=== PATIENT | female | born 1930 | race Caucasian/White ===

== ENCOUNTER → 2017-09-26 | Outpatient (CLI) | payer MEDICARE, OTHER ==
[~2017-09-26] MED LIST: ACET500 PO; BISA10S PR; BISA5EC PO; BISM87SU PO; CALGLU500 PO; CEPH500 PO; CVS DISPOSABLE399 ML PR; DOCU100 PO; ERGO400 PO; Exelon1 EACH TD; FISH1000 PO; FLAX PO; LATA.005SO; MULVITA PO; Milk Of Ma400 MG/5 M PO; OLAN2.5 PO; RIVA1.5 PO; SERT100 PO; SERT25 PO; TRAM50 PO; XARELTO10 MG PO; Zofran Odt4 MG SL
[2017-09-26 12:41] LABS: Source, Urine Clean Catch
[2017-09-26 12:54] LABS: Appearance, Urine Turbid (Clear); Bilirubin, Urine Neg (Neg); Blood, Urine 4+ (Neg); Color, Urine Amber (P-Yellow); Glucose Qualitative, Urine Neg (Neg); Ketones, Urine Neg (Neg); Leukocyte Esterase, Urine 1+ (Neg); Nitrite, Urine Neg (Neg); Protein, Urine 2+ (Neg); Specific Gravity, Urine 1.015 (1.003-1.022); Urobilinogen, Urine NORM (Normal)
[2017-09-26 13:30] LABS: Triple Phosphate Crystals Mod /hpf
[2017-09-26 13:34] LABS: Amorphous Heavy ([, 0-Heavy]); Mucus Heavy ([, 0-Heavy])
== END ==
LOC: LAB SHORT 12:38 → LAB 12:38
PROVIDERS: Student in an Organized Health Care Education/Training Program
DX: N39.0 Urinary tract infection, site not specified (principal)
CPT/HCPCS: 81001; 87077; 87086; 87186

== ENCOUNTER → 2017-10-22 | Outpatient (CLI) | payer MEDICARE, OTHER ==
[2017-10-22 12:17] LABS: Source, Urine Clean Catch
[2017-10-22 12:26] LABS: Bilirubin, Urine Neg (Neg); Blood, Urine 1+ (Neg); Glucose Qualitative, Urine Neg (Neg); Ketones, Urine Neg (Neg); Leukocyte Esterase, Urine 2+ (Neg); Nitrite, Urine Neg (Neg); Protein, Urine Neg (Neg); Specific Gravity, Urine 1.025 (1.003-1.022); Urobilinogen, Urine NORM (Normal)
[2017-10-22 12:33] LABS: Appearance, Urine Clear (Clear); Color, Urine Yellow (P-Yellow)
[2017-10-22 12:37] LABS: Red Blood Cells, Urine 0-2 /hpf (0-2); Squamous Epithelial Cells Few /hpf (Few)
[2017-10-22 12:38] LABS: Amorphous Light ([, 0-Heavy]); Bacteria Few /hpf; Mucus Light ([, 0-Heavy])
== END ==
LOC: LAB 11:30 → LAB SHORT 11:30
PROVIDERS: Student in an Organized Health Care Education/Training Program
DX: N39.0 Urinary tract infection, site not specified (principal)
CPT/HCPCS: 81001; 87086

== ENCOUNTER 2018-12-16 14:33 | Inpatient (IN) | payer MEDICARE, OTHER ==
[~2018-12-16] VITALS: Ht 170.2 cm; Wt 74.8 kg
[~2018-12-16 14:33] MED LIST changes: -ACET500 PO; +Aspirin EC81 MG PO; +Cephalexin250 MG/5 M PO; +Feverall650 MG PR; +Keflex500 MG PO; +Omeprazole20 M1 PO; +Senna S Tablet1 EACH PO
[2018-12-16] MEDS ORDERED: Penlac6.6 ML TOP (14:43)
[2018-12-16] MEDS ORDERED: D-MANNOSE PO (14:44)
[2018-12-16 15:06] LABS: BASOPHILS ABSOLUTE AUTO 0.07 K/mm3 (0.00-0.23); BASOPHILS PERCENT AUTO 1 % (0-2); EOSINOPHILS ABSOLUTE AUTO 0.05 K/mm3 (0.00-0.68); EOSINOPHILS PERCENT AUTO 0 % (0-6); Hemoglobin 13.6 g/dL (11.5-16.0); IMMATURE GRAN ABSOLUTE AUTO 0.07 K/mm3 (0.00-0.10); IMMATURE GRAN PERCENT AUTO 1 % (0-1); LYMPHOCYTES ABSOLUTE AUTO 0.83 K/mm3 (0.84-5.20); LYMPHOCYTES PERCENT AUTO 7 % (21-46); MONOCYTES ABSOLUTE AUTO 0.71 K/mm3 (0.16-1.47); MONOCYTES PERCENT AUTO 6 % (4-13); Mean Corpuscular HGB 28.2 pg (26.0-34.0); Mean Corpuscular HGB Conc 32.4 g/dL (31.5-36.5); Mean Corpuscular Volume 87 fL (80-100); Mean Platelet Volume 9.8 fL (9.1-12.4); NEUTROPHILS ABSOLUTE AUTO 9.85 K/mm3 (1.96-9.15); NEUTROPHILS PERCENT AUTO 85 % (41-73); Platelet Count 264 K/mm3 (150-400); RDW Coefficient Variation 13.8 % (11.7-14.2); RDW Standard Deviation 44.5 fL (35.1-46.3); Red Blood Cell Count 4.82 M/mm3 (3.80-5.20); White Blood Cell Count 11.58 K/mm3 (4.00-11.30)
[2018-12-16 15:38] LABS: Alanine Aminotransfer (ALT/SGP 18 U/L (12-78); Albumin, Blood 3.3 g/dL (3.4-5.0); Albumin/Globulin Ratio 0.8 (0.8-1.8); Alk Phos 88 U/L (50-136); Anion Gap 9 mmol/L (6-16); Aspartate Aminotrans (AST/SGOT 17 U/L (12-37); Bilirubin, Total 0.6 mg/dL (0.1-1.0); Blood Urea Nitrogen 31 mg/dL (8-24); Bun/Creatinine Ratio 45.9 (12.0-20.0); CO2, Blood 22 mmol/L (21-32); Chloride, Blood 115 mmol/L (98-108); Creatinine, Blood 0.68 mg/dL (0.40-1.00); Globulin, Blood 3.9 g/dL (2.2-4.0); Glomerular Filtration Rate >60 (60-); Glucose, Blood 136 mg/dL (70-99); Potassium, Blood 3.6 mmol/L (3.5-5.5); Sodium, Blood 146 mmol/L (136-145); Total Protein, Blood 7.2 g/dL (6.4-8.2)
[2018-12-16 15:41] LABS: Thyroid Stimulating Hormone 0.753 uIU/mL (0.360-4.800)
[2018-12-16 15:46] LABS: Bicarbonate Venous 21.7 mmol/L (24.0-30.0); PCO2 Venous 37.8 mmHg (38-42); PO2 Venous 42.8 mmHg (38-42); pH Blood Venous 7.38 (7.34-7.37)
--- NOTE | 2018-12-16 17:03 | NUR ---
Initial Visit: ED Palliative Care Consult for Goals of Care. Spoke with Dr Carpio and discussed case. Dr Carpio reports Pt has advanced dementia and family would like more information about hospice. Goals are for Pt to receive minimal interventions such as IV antibiotics. Pt is resting in gurney with her eyes closed for the majority of visit. Her eyes were opened temporarily at beginning of visit. She does not respond verbally and is somnolent. Pt's daughter and POKarthikeyan Montalvo is present during visit. Katia reports Pt lives at [facility] and has been chair bound for 2 years since fracturing her hip. Katia reports at baseline Pt sits in a wheelchair and listens to mucsic and taps her feet. Pt had a good appetite up until Saturday where her intake significantly decreased on that day. Pt has not had any intake yesterday or today. Pt does not swallow her food or fluid and allows it to sit in her mouth. Pt is incontinent of bowel and bladder. Katia reports Pt's completed POLST is at [facility] and reads DNR and comfort measures only. Discussed hospice as an option. Educated on hospic philosophy with V/U made by Katia. Katia reports she will consider hospice if Pt does not meet criteria for IV antibiotics or hospital admission. Left hospice brochures for different agencies to choose from. Katia expresses appreciation of visit and information provided. No other concerns reported at this time. Dr Carpio will have Pt admitted to hospital. Palliative Care will obtain copy of POLST from [facility] and will remain available.
[2018-12-16] MEDS ORDERED: FLAX PO (18:08)
[2018-12-16] MEDS ORDERED: RIVASTIGMINE1 EACH TOP (18:15)
--- NOTE | 2018-12-16 19:45 | NUR ---
REPORT RECIEVED FROM DESMOND WILSON RN, AND AWAITING PT T/F TO ROOM 349.
--- NOTE | 2018-12-16 21:00 | NUR ---
REPORT RECIEVED AND PT T/F VIA BED TO ROOM 349 AT 1945 W/FAMILY AT BEDSIDE. PT OPENS EYES OCCASIONALLY SPONTANEOUSLY TO SOUND OR DURING CARE BUT QUICKLY FALLS TO SLEEP. SHE IS NONVERBAL, SOMNOLENT AND DOESN'T SEEM TO MAKE EYE CONTACT. PT HAS BEEN UNABLE TO SWALLOW MEDS, EAT OR DRINK FOR DAYS AND HAS BEEN DETERIORATING FOLLOWING HIP FX 2 YEARS AGO BUT MORE SIGNIFICANTLY THE PAST FEW DAYS. SHE CURRENTLY SEEMS TO BE HAVING SOME DIFFICULTY W/ORAL SECRETIONS BUT IS MAINTAINING HER AIRWAYS AND HAS A WEAK MAT PACKER MOIST COUGH. PT IS UPRIGHT FOR ASP.RISK AND I WILL ASSESS NEED FOR SUCTION AT BEDSIDE. SHE IS CURRENTLY NONAMBULATORY ON BEDREST AND STAFF WILL MAINTAIN TURN SCHEDULE. PT IS ON 2L O2 VIA NC W/RESPS E/U. PT DOES NOT WEAR HOME O2. ATTENDS CHANGED UPON T/F FOR INCONTINENCE. URINE WAS TRA/FOUL ODOR. SHE DOESN'T APPEAR TO BE HAVING ISSUES W/VOIDING/RETENTION BUT WILL BLADDER SCAN AFTER NEXT VOID PER ORDER. NO SBD BUT PT HAS SLIGHTLY PINK BOTTOM FROM INCONTINENCE, CREAM APPLIED. SHE IS HYPERTENSIVE W/SBP 160'S BUT HYDRALAZINE PRN NOT REQUIRED PER PARAMETERS. ALL OTHER VSS. FAMILY ANSWERED ADMIT DETAILS AND IS AT BEDSIDE. IVF INFUSING AND LOVENOX TO BE GIVEN. NO ACUTE CHANGES AT THIS TIME.
[2018-12-16] MEDS ORDERED: SUPPLEMENTS PO (21:18)
[2018-12-16] MEDS ORDERED: SODIUM PHOSPHATE PR (21:22)
[2018-12-16] MEDS ORDERED: HYDROGEN PEROXIDE TOP (21:23)
[2018-12-16] MEDS ORDERED: ANTIBIOTIC28.4 GM TOP (21:24)
--- NOTE | 2018-12-17 03:07 | NUR ---
T/F AND SUMMARY: PT T/F VIA BED TO ROOM 349 AT 1945 W/FAMILY AT BEDSIDE. PT OCCASIONALLY OPENS EYES SPONTANEOUSLY TO SOUND OR DURING CARE BUT QUICKLY FALLS BACK TO SLEEP. SHE IS NONVERBAL, SOMNOLENT AND DOESN'T SEEM TO MAKE EYE CONTACT. PT HAS BEEN UNABLE TO SWALLOW MEDS, EAT OR DRINK FOR DAYS AND HAS BEEN DETERIORATING FOLLOWING HIP FX 2 YEARS AGO BUT HAS MORE SIGNIFICANTLY DECLINED THE PAST FEW DAYS. 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 IV ABX RECIEVED IN ER. SHE CURRENTLY SEEMS TO BE HAVING SOME DIFFICULTY W/ORAL SECRETIONS BUT IS MAINTAINING HER AIRWAY AND HAS A WEAK DIRECTOR OF PRIMARY MOIST COUGH. MOUTH CARE ATTENDED TO. SHE REMAINS UPRIGHT FOR ASP.RISK AND SUCTION HASN'T BEEN REQUIRED AT BEDSIDE. SHE IS CURRENTLY NONAMBULATORY ON BEDREST AND STAFF HAS MAINTAINED TURN SCHEDULE. PT IS ON 2L O2 VIA NC W/RESPS E/U. PT DOESN'T WEAR HOME O2. ATTENDS HAVE BEEN CHANGED PRN FOR INCONTINENCE. URINE IS TRA W/FOUL ODOR. SHE DOESN'T APPEAR TO BE HAVING ISSUES W/VOIDING OR RETENTION BUT I WILL BLADDER SCAN FOR PVR PER ORDERS. NO SBD IS NOTED BUT PT HAS SLIGHTLY PINK BOTTOM FROM INCONTINENCE, CREAM APPLIED. SHE IS HYPERTENSIVE W/SBP 140'S-160'S BUT HYDRALAZINE PRN WAS NOT REQUIRED PER PARAMETERS, ALL OTHER VSS. FAMILY ANSWERED ADMIT DETAILS UPON T/F TO FLOOR AND WENT HOME FOR EVENING. PALLIATIVE CX OCCURED IN ER AND POLST IS ON CHART. NS WAS COMPLETED AND D5 1/2NS W/20 KCL IS NOW INFUSING. PT IS GUARDED W/ADDUCTED EXT'S AT BASELINE D/T BEING W/C AND NOW BEDBOUND. SHE HASN'T APPEARED TO HAVE ANY S/S PAIN OR DISTRESS. NO ACUTE CHANGES. WCTM AND REPORT TO DAY RN.
[2018-12-17 05:13] LABS: BASOPHILS ABSOLUTE AUTO 0.04 K/mm3 (0.00-0.23); BASOPHILS PERCENT AUTO 1 % (0-2); EOSINOPHILS ABSOLUTE AUTO 0.18 K/mm3 (0.00-0.68); EOSINOPHILS PERCENT AUTO 2 % (0-6); Hematocrit 38.1 % (33.0-51.0); IMMATURE GRAN ABSOLUTE AUTO 0.02 K/mm3 (0.00-0.10); IMMATURE GRAN PERCENT AUTO 0 % (0-1); LYMPHOCYTES ABSOLUTE AUTO 1.48 K/mm3 (0.84-5.20); LYMPHOCYTES PERCENT AUTO 18 % (21-46); MONOCYTES ABSOLUTE AUTO 0.74 K/mm3 (0.16-1.47); MONOCYTES PERCENT AUTO 9 % (4-13); Mean Corpuscular HGB Conc 31.5 g/dL (31.5-36.5); Mean Corpuscular Volume 89 fL (80-100); Mean Platelet Volume 10.1 fL (9.1-12.4); NEUTROPHILS ABSOLUTE AUTO 5.86 K/mm3 (1.96-9.15); NEUTROPHILS PERCENT AUTO 70 % (41-73); Platelet Count 220 K/mm3 (150-400); RDW Coefficient Variation 13.9 % (11.7-14.2); RDW Standard Deviation 44.9 fL (35.1-46.3); Red Blood Cell Count 4.29 M/mm3 (3.80-5.20); White Blood Cell Count 8.32 K/mm3 (4.00-11.30)
[2018-12-17 05:30] LABS: Alanine Aminotransfer (ALT/SGP 15 U/L (12-78); Albumin, Blood 2.9 g/dL (3.4-5.0); Albumin/Globulin Ratio 0.9 (0.8-1.8); Alk Phos 72 U/L (50-136); Anion Gap 7 mmol/L (6-16); Aspartate Aminotrans (AST/SGOT 16 U/L (12-37); Bilirubin, Total 0.5 mg/dL (0.1-1.0); Blood Urea Nitrogen 28 mg/dL (8-24); Bun/Creatinine Ratio 42.7 (12.0-20.0); CO2, Blood 23 mmol/L (21-32); Chloride, Blood 119 mmol/L (98-108); Creatinine, Blood 0.66 mg/dL (0.40-1.00); Globulin, Blood 3.1 g/dL (2.2-4.0); Glomerular Filtration Rate >60 (60-); Glucose, Blood 133 mg/dL (70-99); Potassium, Blood 3.2 mmol/L (3.5-5.5); Sodium, Blood 149 mmol/L (136-145)
--- NOTE | 2018-12-17 10:49 | NUR ---
D5W-1/4NS KCL 20 MEQ COMPATIBLE WITH MAG SULFATE PER PHARMACIST.
--- NOTE | 2018-12-17 11:01 | NUR ---
PT DAUGHTER VOICES CONCERNS ABOUT AN INFECTED TOOTH ABOUT "SOURCE OF INFECTION. DR MARTINEZ ASSESSED TOOTH AND WILL ORDER NEW ANTIBIOTICS. ON A SEPARATE OCCASION, DAUGHTER VOICES CONCERNS THAT THE PT IS NOT EATING, AND WAS WONDERING ABOUT TPN OR CLINIMIX UNTIL PT IS MORE ALERT TO EAT. PALLIATIVE CARE RN AT BEDSIDE DURING THIS TIME. STATES HE WILL DISCUSS WITH DR MARTINEZ DAUGHTERS NUTRITIONAL CONCERNS.
--- NOTE | 2018-12-17 11:34 | NUR ---
Pt visit this AM. Pt is resting in bed initialy with her eyes closed and responding only by opening her eyes with verbal stimuli. Pt appears comfortable with no S/S of distress. Pt's daughter Katia is present during visit. Discussed POLST in chart. Current POLST reads DNR, Limited Treatment, and Limited Trial of Artificial Nutrition by Tube. Ktaia confirms wishes with the exception of Tube Feeding. Discussed competing a new POLST. Katia would like to delay completing a new POLST until a more clear goal of care has been established. Katia inquires about IV nutrition since Pt has not eaten since Saturday and states "I would like to give my mom every fighting chance". Pt is more wakeful at this time and is smiling but still does not respond verbally. Relayed Margarita request to Dr Whitley. Palliative Care will remain available.
--- NOTE | 2018-12-17 13:31 | NUR ---
PT DAUGHTER FED PT YOGURT AND PT ABLE TO COMPLETE 100%. PT SILASAHGTERS REPORTS COLD LIQUIDS, ICE WATER, PT WAS NOT ABLE TO TOLERATE D/T TOOTH PAIN. HOWEVER, PT TOLERATED WARM COFFEE MUCH BETTER.
[2018-12-17 15:41] LABS: Source, Urine Catheter
[2018-12-17 15:49] LABS: Bilirubin, Urine Neg (Neg); Blood, Urine 1+ (Neg); Glucose Qualitative, Urine Neg (Neg); Ketones, Urine 2+ (Neg); Leukocyte Esterase, Urine Neg (Neg); Nitrite, Urine Neg (Neg); Protein, Urine Neg (Neg); Urobilinogen, Urine NORM (Normal)
[2018-12-17 15:57] LABS: Appearance, Urine Clear (Clear); Color, Urine Yellow (P-Yellow)
[2018-12-17 16:00] LABS: Bacteria Mod /hpf; Red Blood Cells, Urine 0-2 /hpf (0-2); Squamous Epithelial Cells Rare /hpf (Few); White Blood Cells, Urine 0-2 /hpf (0-5)
--- NOTE | 2018-12-17 17:16 | NUR ---
LATE ENTRY FOR 1500 PT WITH ABD PAIN, FAMILY NOTICING WINCING AND CLUTCHING ABD. PLACED CALL TO DR MARTINEZ WHO ORDERS A BLADDER SCAN. IF BLADDER SCAN >150ML, INSERT LY CATH. BLADDER SCAN REVEALS 964 ML IN BLADDER. LY CATH INSERTED, 3 STAFF REQUIRED TO HOLD PT. UA SENT TO LAB. LY PATENT AND DRAINING.
--- NOTE | 2018-12-17 18:27 | NUR ---
Pal Spiritual Care inital note: Mrs. Mejía had just been medicated and slept while I visited with her dtrs. Family friends also present. Dtr, Katia told me about her mother's amazing life. Pt loved to dance and enjoyed socializing. Even as her dementia progressed, pt was dancing and enjoying being around people. Dtrs and friends became tearful during prayer, and this sparked a good conversation and corporate counselor about anticipatory grief. Complimented family on their obvious love for pt and offered continued support.
--- NOTE | 2018-12-17 18:33 | NUR ---
SHIFT SUMMARY PT HAS BEEN LETHARGIC AND DROWSY, RESPONDING TO VERBAL STIMULI. PT IS ORIENTED TO FAMILY, DAUGHTER AT BEDSIDE FEEDING PT. PT OPENS EYES AND IS AWAKE WITH HER FOR A BIT, INTERACTING THROUGH SMILE AND EYE CONTACT. DAUGHTER VOICES CONCERN ABOUT PT NOT EATING SINCE SATURDAY - CONCERNS RELAYED TO DR MARTINEZ, NO NEW ORDERS, FAMILY AND DR MARTINEZ DECIDED TO ALLOW ABX AND FLUIDS TO BE ADMINISTERED FOR 1-2 DAYS AND MONITOR FOR PROGRESS BEFORE STARTING CLINIMIX OR TPN. PT ALSO WINCING IN PAIN, CLUTCHING AT ABD. PT NOTED TO HAVE FLUID RETENTION, BLADDER SCAN SHOWS 964 ML. LY CATH INSERTED, PT HAS BEEN SLEEPING AND APPEARING COMFORTABLE SINCE. PT ALSO NOTED TO HAVE AN INFECTED TOOTH ON THE R SIDE. DR MARTINEZ AWARE AND STATES CURRENT ABX REGIMEN FOR UTI WILL ALSO COVER TOOTH INFECTION. THIS RN NOTIFIED FAMILY. NO OTHER CHNAGES TO REPORT, WILL CONT TO MONITOR AND PROVIDE CARE UNTIL PRESUMED BY ONCOMING RN.
--- NOTE | 2018-12-18 04:59 | NUR ---
SHIFT SUMMARY PT SLEPT T/O SHIFT. PT DID RESPOND TO FAMILY FOR SHORT PERIOD. PT HAS WEAK COUGH AND REQUIRES SUCTIONG TO CLEAR SECRETIONS. PT REPOSITIONED AND CHANGED NEEDED. PT CURRENTLY SLEEPING IN NO DISTRESS. CALL LIGHT IN REACH.
[2018-12-18 11:45] LABS: BASOPHILS ABSOLUTE AUTO 0.06 K/mm3 (0.00-0.23); BASOPHILS PERCENT AUTO 1 % (0-2); EOSINOPHILS ABSOLUTE AUTO 0.22 K/mm3 (0.00-0.68); EOSINOPHILS PERCENT AUTO 3 % (0-6); Hematocrit 35.3 % (33.0-51.0); Hemoglobin 11.3 g/dL (11.5-16.0); IMMATURE GRAN ABSOLUTE AUTO 0.03 K/mm3 (0.00-0.10); IMMATURE GRAN PERCENT AUTO 0 % (0-1); LYMPHOCYTES ABSOLUTE AUTO 1.19 K/mm3 (0.84-5.20); LYMPHOCYTES PERCENT AUTO 15 % (21-46); MONOCYTES ABSOLUTE AUTO 0.58 K/mm3 (0.16-1.47); MONOCYTES PERCENT AUTO 8 % (4-13); Mean Corpuscular Volume 87 fL (80-100); Mean Platelet Volume 10.2 fL (9.1-12.4); NEUTROPHILS ABSOLUTE AUTO 5.68 K/mm3 (1.96-9.15); NEUTROPHILS PERCENT AUTO 73 % (41-73); Platelet Count 202 K/mm3 (150-400); RDW Coefficient Variation 13.3 % (11.7-14.2); RDW Standard Deviation 42.5 fL (35.1-46.3); Red Blood Cell Count 4.04 M/mm3 (3.80-5.20); White Blood Cell Count 7.76 K/mm3 (4.00-11.30)
[2018-12-18 12:08] LABS: Anion Gap 5 mmol/L (6-16); Blood Urea Nitrogen 11 mg/dL (8-24); Bun/Creatinine Ratio 14.7 (12.0-20.0); CO2, Blood 25 mmol/L (21-32); Calcium, Blood 8.5 mg/dL (8.5-10.1); Chloride, Blood 110 mmol/L (98-108); Creatinine, Blood 0.75 mg/dL (0.40-1.00); Glomerular Filtration Rate >60 (60-); Glucose, Blood 133 mg/dL (70-99); Potassium, Blood 3.6 mmol/L (3.5-5.5); Sodium, Blood 140 mmol/L (136-145)
--- NOTE | 2018-12-18 12:34 | NUR ---
Pt visit this afternoon. Pt is resting in bed and opens her eyes periodically throughout visit. Pt does not respond verbally. Pt's daughters Katia and Jennifer are present during visit. Pt PAINAD score is 2/10 as evidenced by intermitent grimacing and constant movement of hands. Katia reports plan if for Pt to have swallow evaluation and then goals of care may need to be revisited. Katia reports if Pt fails evaluation then family will have Pt placed with hospice services. Answered family's questions regarding hospice services. Deferred some questions for intensive care ambulance paramedic regarding discharge. Family inquires about pain management after swallow evaulation and this RN answered questions and instructed collaberation between bedside nurse and MD will take place. No other concerns reported at this time. Spoke with bedside nurse Fiona and discussed case. Fiona reports Pt's facility nurse called and this RN offered to call facility with update with Fiona being agreeable. Called and updated facility nurse Giovanna. Discussed treatment and goals of care including hospice as an option. Giovanna is agreeable with plan. She does report hospice agency will need to place Pt on services within 24 hours of being discharged from hospital and will need comfort medications prescribed upon discharge. No other concerns reported. Spoke with intensive care ambulance paramedic Sharona and discussed case. Relayed family's questions and instructions facility nurse Giovanna discussed. Palliative Care will remain available.
--- NOTE | 2018-12-18 14:53 | NUR ---
Pt visit this afternoon. Received call from [facility] and discussed case. Minnie reports results of swallow eval and Pt can not protect her airway. Arrived to Pt's room and daughter Katia and Jennifer are present. Both are tearful. Offered emotional support. Listened as Katia discusses plan for hospice. Katia reports [facility] would be first choice but will choose hospice agency that can admit Pt onto services the soonest. Dr Rodriguez arrives and discussed plan with family. Family is agreeable with Dr Rodriguez's plan for discharge back to facility tomorrow on hospice. Dr Rodriguez answers family's questions with no other concerns reported. Remained in the for several more minutes and offered emotional support. Spoke with Caryn Jiménez and she reports [facility] and [facility] are booked out until middle of next week. Spoke with Pt's daughter Eileen choosed [facility]. Called and spoke with Claire from [facility] and she confirms availability to admit Pt to hospice services tomorrow. Provided information needed to start the process and Claire request documents such as H&P and care notes. Instructed this request will be relayed to home care giver. Spoke with Giovanna from [facility] and discussed plan. Giovanna requests for hospice to provide pressure mattress and bedside table. She also requests for discharging MD to discontinue home medications except for comfort medications. Relayed Giovanna and Claire's request to Caryn Jiménez. Palliative Care will remain available.
--- NOTE | 2018-12-18 15:47 | NUR ---
Late Entry from previous visit note. Pt currently is full care requiring assistance with dressing, bathing, and is currently bedbound. Pt is incontinent of bowel and bladder and currently has Aranda Catheter placed. Pt not able to feed self and is unable to swallow safely. Unable to protect airway. Pt experiences aphasia with no meaningful communication. History of UTI's. PPS 30% Karnofsky 30% FAST Score 7c ADLs 6/6
--- NOTE | 2018-12-18 17:26 | NUR ---
Spiritual Care routine visit: Breanna's two dtrs were at bedside. They tearfully tell me that pt will be going back to care facility on hospice services. They express deep gratitude for their mom and told me stories about how she raised them. Provided theraputic listening, education, and anticipatory bereavement child welfare counselor to good effect. Pt is non-verbal and barely responsive. But she does open eyes and nod weakly when offered prayer. Gave family two booklets on the dying process. Family grateful for support. [employer] will remain available.
--- NOTE | 2018-12-18 17:43 | NUR ---
PT AOX1 AND DOES NOT RESPOND TO MUCH. WILL REACT AND TRY TO SAY THINGS TO FAMILY, BUT HAS TROUBLE. PT WAS CHOKING ON HER OWN ORAL SECRETIONS AND WAS LAID ON HER SIDE TO ALLOW SALIVA TO RUN OUT. ST DID AN EVAL AND DECIDED PT WAS TO BE NPO. ATROPINE DROPS WERE ORDERED WITH A SCOPOLAMINE PATCH APPLIED. PT HAS BEEN REPOSTIONED EVERY TWO HOURS. FAMILY AT BEDSIDE, WILL CONTINUE TO MONITOR.
--- NOTE | 2018-12-18 19:05 | NUR ---
call to dr servin for atropine for severe secretions.
--- NOTE | 2018-12-19 00:41 | NUR ---
12/18/181919 VIEW SCORE OF "3" ON VITALS. PT SLEEPING WITH SEVERAL BLANKETS ON HER. FAMILY REQUESTS BLANKETS LEFT ON HER AND ALLOW HER TO SLEEP. WILL RECHECK VITALS LATER.
--- NOTE | 2018-12-19 06:06 | NUR ---
12/19/18 0600 RN reapplied o2 as o2 sats on room air this AM WAS 88%. O2 at 2LPM BRINGS OS SATS TO 93-94%. PT TURNED Q 2 HOURS. ORAL AND REMINGTON-CARE GIVEN WITH ROUNDS. PT SLEEPING NOW WITHOUT DISTRESS/DISCOMFORT NOTED.
[2018-12-19] MEDS ORDERED: LORA2L PO (08:00)
[2018-12-19] MEDS ORDERED: MORP20L SL (08:02)
[2018-12-19] MEDS ORDERED: PROM25S PR (08:03)
--- NOTE | 2018-12-19 10:19 | NUR ---
Pt visit this AM. Pt resting in bed with her eyes closed upon arrival and appears comfortable. No S/S of distress at this time. Pt's daughter Katia is present during visit. Discussed plan and Katia reports no concerns at this time. Palliative Care will remain available.
--- NOTE | 2018-12-19 10:30 | NUR ---
PT TRANSFERED BACK HOME TO [facility] TODAY AT 1015 WITH FAMILY PRESENT VIA AMBULANCE. PT WENT HOME ON HOSPICE. [facility] CAREMANAGER CAME TO CHECK ON PT PRIOR AND RECIEVED HARDSCRIPTS AND MEDICATION LIST FOR PT. PT HAS BEEN AOX1 TODAY AND WAS READJUSTED EVERY COUPLE HOURS. LY WAS LEFT IN PLACE PER DR DIOP REQUEST. BELONGINGS REMOVED FROM ROOM BY FAMILY.
== END 2018-12-19 10:30 | disposition hospice, home (50) | DRG 689 ==
LOC: ER 14:33 → MEDS 17:43 → ENPENDDIS 12-19 08:31 → MEDS 12-19 10:30
PROVIDERS: Emergency Medicine; ADMIT Internal Medicine
DX: N39.0 Urinary tract infection, site not specified (principal); G93.41 Metabolic encephalopathy; B95.5 Unspecified streptococcus as the cause of diseases classified elsewhere; G30.9 Alzheimer's disease, unspecified; F02.80 Dementia in other diseases classified elsewhere, unspecified severity, without behavioral disturbance, psychotic disturbance, mood disturbance, and anxiety; Z51.5 Encounter for palliative care; K04.7 Periapical abscess without sinus; R13.12 Dysphagia, oropharyngeal phase; I10 Essential (primary) hypertension; E78.5 Hyperlipidemia, unspecified; Z87.891 Personal history of nicotine dependence; E86.0 Dehydration; Z66 Do not resuscitate
CPT/HCPCS: 36415; 70450; 71045; 80048; 80053; 81001; 82803; 84443; 84484; 85025; 87086; 92610; 93005; 93010; 96361; 96365; 99284-25; 99285-25; J0696; J1650; J2405; J3475; J7030; P9612